=== PATIENT | male | born 1965 | race Caucasian/White ===

== ENCOUNTER 2019-10-03 14:06 | Inpatient (IN) | payer OTHER ==
[~2019-10-03] VITALS: Ht 172.7 cm; Wt 55.0 kg
[2019-10-03] VITALS (466 sets, daily range): BP systolic 144; BP diastolic 78–85; PULSE 80–93; TEMP 97.6–98.5; O2SAT 65–100
[2019-10-03] MEDS ORDERED: IBU800 M1 PO (15:42)
[2019-10-04] VITALS (936 sets, daily range): BP systolic 124–171; BP diastolic 68–82; PULSE 75–108; TEMP 97.1–98.1; O2SAT 32–100
[2019-10-04 06:52] LABS: BASO % 0.1 % (0.0-2.0); GRAN # 8.8 (1.4-6.5); GRAN % 88.3 % (42.2-75.2); HEMATOCRIT 38.3 % (42.0-52.0); HEMOGLOBIN 12.2 g/dl (13.5-18.0); LYMPH % 10.1 % (20.0-51.0); MEAN CELL VOLUME 91 fl (80.0-100.0); MEAN CORPUSCULAR HEMOGLOBIN 29 pg (27.0-31.0); MEAN CORPUSCULAR HGB CONC 32 g/dl (33.0-37.0); MEAN PLATELET VOLUME 9.5 fl (7.4-10.4); MONO # 0.1 (0.1-0.6); PLATELET COUNT 540 K/mm3 (130-400); RED BLOOD COUNT 4.21 M/mm3 (4.20-5.60); REDCELL DISTRIBUTION WIDTH-CV 13.2 % (11.5-14.5)
[2019-10-04 07:05] LABS: PROTHROMBIN TIME 11.9 SECONDS (9.7-12.8)
[2019-10-04 07:11] LABS: ALBUMIN 3.7 gm/dL (3.5-5.0); BILIRUBIN,TOTAL 0.2 mg/dL (0.0-1.0); C-REACTIVE PROTEIN 1.6 mg/dL (0.0-0.9); CALCIUM 9.1 mg/dL (8.4-10.2); CREATININE, serum 0.53 (0.66-1.25); POTASSIUM 4.6 mmol/L (3.4-5.0); TOTAL PROTEIN 7.1 gm/dL (6.4-8.2)
[2019-10-05] VITALS (7 sets, daily range): BP systolic 124–163; BP diastolic 72–90; PULSE 69–88; TEMP 97.1–98.6
[2019-10-05 08:39] LABS: BASO % 0.1 % (0.0-2.0); GRAN # 14.7 (1.4-6.5); GRAN % 88.8 % (42.2-75.2); HEMATOCRIT 37.7 % (42.0-52.0); HEMOGLOBIN 12.1 g/dl (13.5-18.0); LYMPH # 1.3 (1.2-3.4); LYMPH % 7.7 % (20.0-51.0); MEAN CELL VOLUME 91 fl (80.0-100.0); MEAN CORPUSCULAR HEMOGLOBIN 29 pg (27.0-31.0); MEAN CORPUSCULAR HGB CONC 32 g/dl (33.0-37.0); MEAN PLATELET VOLUME 9.6 fl (7.4-10.4); MONO # 0.5 (0.1-0.6); PLATELET COUNT 513 K/mm3 (130-400); RED BLOOD COUNT 4.13 M/mm3 (4.20-5.60); REDCELL DISTRIBUTION WIDTH-CV 13.5 % (11.5-14.5)
[2019-10-05 08:56] LABS: CALCIUM 9.2 mg/dL (8.4-10.2); CREATININE, serum 0.52 (0.66-1.25); POTASSIUM 4.3 mmol/L (3.4-5.0)
[2019-10-06] VITALS (12 sets, daily range): BP systolic 107–162; BP diastolic 54–92; PULSE 58–99; TEMP 97.5–98.3
[2019-10-06 06:59] LABS: BASO % 0.1 % (0.0-2.0); GRAN # 11.8 (1.4-6.5); GRAN % 89.3 % (42.2-75.2); HEMATOCRIT 42.3 % (42.0-52.0); HEMOGLOBIN 13.6 g/dl (13.5-18.0); LYMPH # 1.1 (1.2-3.4); LYMPH % 8.5 % (20.0-51.0); MEAN CELL VOLUME 91 fl (80.0-100.0); MEAN CORPUSCULAR HEMOGLOBIN 29 pg (27.0-31.0); MEAN CORPUSCULAR HGB CONC 32 g/dl (33.0-37.0); MEAN PLATELET VOLUME 9.8 fl (7.4-10.4); MONO # 0.2 (0.1-0.6); MONO % 1.7 % (1.7-9.3); PLATELET COUNT 518 K/mm3 (130-400); RED BLOOD COUNT 4.66 M/mm3 (4.20-5.60); REDCELL DISTRIBUTION WIDTH-CV 13.5 % (11.5-14.5)
[2019-10-06 07:10] LABS: ALANINE AMINOTRANSFERASE < 6 U/L (21-72); ALBUMIN 4.1 gm/dL (3.5-5.0); ALKALINE PHOSPHATASE 73 U/L (50-136); ANION GAP 8 mmol/L (7-16); AST,SGOT 12 U/L (15-37); BILIRUBIN,TOTAL 0.3 mg/dL (0.0-1.0); BLOOD UREA NITROGEN 10 mg/dL (9-20); CALCIUM 9.9 mg/dL (8.4-10.2); CARBON DIOXIDE 31 mmol/L (22-30); CHLORIDE 100 mmol/L (98-107); CREATININE, serum 0.51 (0.66-1.25); GLUCOSE 114 mg/dL (74-106); MAGNESIUM 2.2 mg/dL (1.6-2.3); POTASSIUM 4.2 mmol/L (3.4-5.0); SODIUM 139 mmol/L (137-145); TOTAL PROTEIN 7.7 gm/dL (6.4-8.2)
[2019-10-06 12:13] LABS: PHOSPHOROUS 4.3 mg/dL (2.5-4.5)
[2019-10-06 12:20] LABS: PRE ALBUMIN 24.8 mg/dL (17.6-36.0)
[2019-10-07 03:56] VITALS: BP 126/96; PULSE 78; TEMP 97.7
[2019-10-07 07:40] LABS: ALBUMIN 3.5 gm/dL (3.5-5.0); BILIRUBIN,TOTAL 0.3 mg/dL (0.0-1.0); CALCIUM 9.5 mg/dL (8.4-10.2); CREATININE, serum 0.56 (0.66-1.25); MAGNESIUM 2.3 mg/dL (1.6-2.3); PHOSPHOROUS 3.9 mg/dL (2.5-4.5); TOTAL PROTEIN 6.7 gm/dL (6.4-8.2)
[2019-10-07 08:36] LABS: HEMATOCRIT 38.6 % (42.0-52.0); HEMOGLOBIN 12.5 g/dl (13.5-18.0); MEAN CELL VOLUME 91 fl (80.0-100.0); MEAN CORPUSCULAR HEMOGLOBIN 29 pg (27.0-31.0); MEAN CORPUSCULAR HGB CONC 32 g/dl (33.0-37.0); MEAN PLATELET VOLUME 10.4 fl (7.4-10.4); PLATELET COUNT 426 K/mm3 (130-400); RED BLOOD COUNT 4.26 M/mm3 (4.20-5.60); REDCELL DISTRIBUTION WIDTH-CV 13.6 % (11.5-14.5)
[2019-10-07 08:43] VITALS: BP 157/82; PULSE 86; TEMP 97.6
[2019-10-07 10:52] LABS: BAND 2 % (0-10); LYMPHOCYTE 4 % (20.0-51.0); NEUTROPHILS 90 % (42.0-75.2)
[2019-10-07 10:53] LABS: PLATELET ESTIMATE INCREASED (NORMAL)
[2019-10-07 11:28] VITALS: BP 139/82; PULSE 96; TEMP 97.3
[2019-10-07 16:00] VITALS: BP 153/73; PULSE 90; TEMP 98.1
[2019-10-07 20:57] VITALS: BP 129/56; TEMP 97.9
[2019-10-07 23:19] VITALS: BP 145/67; PULSE 88; TEMP 98
[2019-10-08 03:40] VITALS: BP 159/76; PULSE 97; TEMP 97.2
[2019-10-08 06:07] LABS: BASO % 0.1 % (0.0-2.0); EOS % 0.1 % (0-4.0); GRAN # 14.9 (1.4-6.5); GRAN % 85.4 % (42.2-75.2); HEMOGLOBIN 11.9 g/dl (13.5-18.0); LYMPH # 1.4 (1.2-3.4); LYMPH % 7.8 % (20.0-51.0); MEAN CELL VOLUME 91 fl (80.0-100.0); MEAN CORPUSCULAR HEMOGLOBIN 30 pg (27.0-31.0); MEAN CORPUSCULAR HGB CONC 33 g/dl (33.0-37.0); MEAN PLATELET VOLUME 10.4 fl (7.4-10.4); MONO # 1.1 (0.1-0.6); MONO % 6.1 % (1.7-9.3); PLATELET COUNT 392 K/mm3 (130-400); REDCELL DISTRIBUTION WIDTH-CV 13.7 % (11.5-14.5)
[2019-10-08 06:08] LABS: HEMATOCRIT 36.5 % (42.0-52.0)
[2019-10-08 06:23] LABS: CALCIUM 9.2 mg/dL (8.4-10.2); CREATININE, serum 0.59 (0.66-1.25); POTASSIUM 3.2 mmol/L (3.4-5.0)
[2019-10-08 07:37] VITALS: BP 147/72; PULSE 99; TEMP 98.1
[2019-10-08 11:03] VITALS: BP 117/57; PULSE 97; TEMP 98.3
[2019-10-08 16:07] VITALS: BP 142/61; PULSE 99; TEMP 98.1
[2019-10-08 21:09] VITALS: BP 133/60; TEMP 97.7
[2019-10-09 00:11] VITALS: PULSE 84
[2019-10-09 05:08] VITALS: BP 109/57; PULSE 115; TEMP 98
[2019-10-09 07:42] VITALS: BP 127/58; PULSE 81; TEMP 98.1
[2019-10-09 11:45] VITALS: BP 128/63; PULSE 95; TEMP 97.9
[2019-10-09 12:30] LABS: HEMATOCRIT 37.9 % (42.0-52.0); HEMOGLOBIN 12.4 g/dl (13.5-18.0); MEAN CELL VOLUME 91 fl (80.0-100.0); MEAN CORPUSCULAR HEMOGLOBIN 30 pg (27.0-31.0); MEAN CORPUSCULAR HGB CONC 33 g/dl (33.0-37.0); MEAN PLATELET VOLUME 10.2 fl (7.4-10.4); PLATELET COUNT 340 K/mm3 (130-400); RED BLOOD COUNT 4.16 M/mm3 (4.20-5.60); REDCELL DISTRIBUTION WIDTH-CV 13.9 % (11.5-14.5)
[2019-10-09 12:39] LABS: BAND 1 % (0-10); EOSINOPHIL 2 % (0-4); LYMPHOCYTE 11 % (20.0-51.0); NEUTROPHILS 82 % (42.0-75.2); PLATELET ESTIMATE NORMAL (NORMAL)
[2019-10-09 12:41] LABS: CALCIUM 9.5 mg/dL (8.4-10.2); CREATININE, serum 0.57 (0.66-1.25); POTASSIUM 3.3 mmol/L (3.4-5.0)
[2019-10-09 17:10] VITALS: BP 122/74; PULSE 88; TEMP 98.6
[2019-10-09 19:12] LABS: AMORPHOUS CRYSTAL Present /uL; PH 9 (5-8); SQUAMOUS EPITHELIAL None Seen /hpf; URINE APPEARANCE Turbid; URINE BACTERIA Many /hpf; URINE BILIRUBIN Negative (NEGATIVE); URINE BLOOD Negative (NEGATIVE); URINE COLOR Yellow; URINE GLUCOSE Negative (NEGATIVE); URINE KETONE Negative (NEGATIVE); URINE LEUKOCYTE ESTERASE Negative (NEGATIVE); URINE NITRATE Negative (NEGATIVE); URINE PROTEIN(semi-quant) Negative (NEGATIVE); URINE RBC 0-2 /hpf; URINE UROBILINOGEN Negative (NEGATIVE)
[2019-10-09 19:18] LABS: COLLECTION METHOD CLEAN CATCH
[2019-10-09 20:20] VITALS: BP 127/53; PULSE 103; TEMP 99.5
[2019-10-10 00:30] VITALS: BP 108/48; PULSE 102; TEMP 98.7
[2019-10-10 03:38] VITALS: BP 103/55; PULSE 91; TEMP 97.7
[2019-10-10 07:19] LABS: HEMOGLOBIN 11.1 g/dl (13.5-18.0); MEAN CELL VOLUME 92 fl (80.0-100.0); MEAN CORPUSCULAR HEMOGLOBIN 29 pg (27.0-31.0); MEAN CORPUSCULAR HGB CONC 32 g/dl (33.0-37.0); MEAN PLATELET VOLUME 10.3 fl (7.4-10.4); PLATELET COUNT 381 K/mm3 (130-400); REDCELL DISTRIBUTION WIDTH-CV 13.8 % (11.5-14.5)
[2019-10-10 07:22] LABS: HEMATOCRIT 34.8 % (42.0-52.0)
[2019-10-10 07:43] LABS: CALCIUM 9.5 mg/dL (8.4-10.2); CREATININE, serum 0.56 (0.66-1.25); POTASSIUM 3.7 mmol/L (3.4-5.0)
[2019-10-10 07:55] LABS: C-REACTIVE PROTEIN 17.8 mg/dL (0.0-0.9)
[2019-10-10 08:22] VITALS: BP 137/69; PULSE 102; TEMP 97.8
[2019-10-10 10:01] LABS: BAND 26 % (0-10); EOSINOPHIL 5 % (0-4); LYMPHOCYTE 2 % (20.0-51.0); NEUTROPHILS 60 % (42.0-75.2); PLATELET ESTIMATE NORMAL (NORMAL)
[2019-10-10 12:11] VITALS: BP 148/78; PULSE 113; TEMP 98.9
[2019-10-10] MEDS ORDERED: NORCOELIX PO (13:12)
[2019-10-10] MEDS ORDERED: NICODERM C21 MG/PATC TD (13:14)
[2019-10-10] MEDS ORDERED: NORCO 325 MG-51 TAB PO (14:46)
[2019-10-10] MEDS ORDERED: AMOXICILLIN 8751 TAB PO (14:46)
[2019-10-10 15:59] VITALS: BP 128/52; PULSE 102; TEMP 97.3
== END 2019-10-10 16:50 | disposition home or self-care (01) | DRG 982 ==
LOC: IMCU 14:06 → ICU 15:08 → SURG 10-04 16:00
PROVIDERS: Family Medicine; Nurse Practitioner Family; Physician Assistant; Surgery; ADMIT Internal Medicine
PROC: 0CB Mouth and Throat, Excision (ICD-10-PCS; 2019-10-03)
PROC: 02HV33Z Insertion of Infusion Device into Superior Vena Cava, Percutaneous Approach (ICD-10-PCS; 2019-10-06)
PROC: 0JH60WZ Insertion of Totally Implantable Vascular Access Device into Chest Subcutaneous Tissue and Fascia, Open Approach (ICD-10-PCS; principal; 2019-10-06 10:00)
PROC: 0DH60UZ Insertion of Feeding Device into Stomach, Open Approach (ICD-10-PCS; 2019-10-06 10:00)
DX: C04.9 Malignant neoplasm of floor of mouth, unspecified (principal); E44.0 Moderate protein-calorie malnutrition; C78.01 Secondary malignant neoplasm of right lung; F17.210 Nicotine dependence, cigarettes, uncomplicated; F10.20 Alcohol dependence, uncomplicated; K74.60 Unspecified cirrhosis of liver; G89.3 Neoplasm related pain (acute) (chronic); E11.65 Type 2 diabetes mellitus with hyperglycemia; E87.6 Hypokalemia; Z90.49 Acquired absence of other specified parts of digestive tract
CPT/HCPCS: 99223-AI; 99232-AI; 99233-AI; 99239; B4087; C1788; J0295; J1644; J2250; J2270; J2704; J2920; J3010; J3480; J7030; Q9967

== ENCOUNTER → 2019-12-13 | Outpatient (CLI) | payer MEDICAID ==
[~2019-12-13] VITALS: Ht 172.7 cm; Wt 55.8 kg
[~2019-12-13] MED LIST: AMOXICILLIN 8751 TAB PO; IBU800 M1 PO; NICODERM C21 MG/PATC TD; NORCO 325 MG-51 TAB PO; NORCO 325 MG-7.1 TAB PO; NORCOELIX PO
[2019-12-13 09:34] VITALS: BP 117/63; PULSE 93
--- NOTE | 2019-12-13 10:59 | NUR ---
PROCEDURE CANCELLED BY DR DUFF
== END ==
LOC: COL.RAD 08:58
DX: C04.9 Malignant neoplasm of floor of mouth, unspecified (principal); R91.1 Solitary pulmonary nodule